=== PATIENT | female | born 1980 | race African-American/Black ===

== ENCOUNTER 2023-08-27 10:43 | Emergency (ER) | payer SELFPAY ==
[~2023-08-27] VITALS: Ht 162.6 cm; Wt 104.8 kg
[2023-08-27 11:35] VITALS: BP 132/86; PULSE 113; RESP 16; TEMP 98.1; O2SAT 95
[2023-08-27 12:07] VITALS: O2SAT 99
== END 2023-08-27 12:17 | disposition home or self-care (01) ==
LOC: MED 10:43
DX: F10.129 Alcohol abuse with intoxication, unspecified (principal); Y90.9 Presence of alcohol in blood, level not specified
CPT/HCPCS: 99281

== ENCOUNTER 2023-11-29 17:44 | Emergency (ER) | payer SELFPAY ==
[~2023-11-29] VITALS: Ht 165.1 cm; Wt 81.6 kg
[2023-11-29 17:44] VITALS: BP 152/109; PULSE 106; RESP 18; TEMP 98.6; O2SAT 98
[2023-11-29] MEDS: TETRACAINE HCL/PF 0.5% OPTH 4 ML BTL OP ONE ×2 (19:26→21:50)
[2023-11-29 19:43] LABS: BASOPHILS # (AUTO) 0.1 K/uL (0.00-0.22); BASOPHILS % (AUTO) 0.7 % (0.0-2.0); EOSINOPHILS % (AUTO) 0.1 % (0.0-4.0); HEMATOCRIT 39.7 % (36-48); HEMOGLOBIN 13.8 g/dL (12.0-16.0); LYMPHOCYTES # (AUTO) 1.1 K/uL (2.5-16.5); LYMPHOCYTES % (AUTO) 13.2 % (20.5-51.1); MEAN CORPUSCULAR HEMOGLOBIN 32 pg (27-31); MEAN CORPUSCULAR HGB CONC 35 g/dL (33-37); MEAN CORPUSCULAR VOLUME 91.9 fL (80-94); MONOCYTES # (AUTO) 0.2 K/uL (0.8-1.0); MONOCYTES % (AUTO) 2.8 % (1.7-9.3); NEUTROPHILS # (AUTO) 6.7 K/uL (1.8-7.7); NEUTROPHILS % (AUTO) 83.2 % (42.2-75.2); PLATELET COUNT (AUTO) 185 K/uL (140-450); RED BLOOD CELL COUNT(AUTO) 4.32 MIL/uL (4.20-5.40); RED CELL DISTRIBUTION WIDTH 13.9 % (11.6-13.7)
[2023-11-29 19:57] LABS: ANION GAP 22.7 (8-16); CALCIUM 9.4 mg/dL (8.5-10.1); CARBON DIOXIDE 20.2 mmol/L (21-32); CREATININE 0.8 mg/dL (0.6-1.3); POTASSIUM 3.9 mmol/L (3.5-5.1)
[2023-11-29 20:00] LABS: INR 0.96 (0.8-1.2); PARTIAL THROMBOPLASTIN TIME 26.5 secs (22-35.6); PROTHROMBIN TIME 10.1 secs (10.8-13.4)
[2023-11-29 20:03] LABS: ALBUMIN 3.5 g/dL (3.4-5.0); BILIRUBIN,DIRECT 0.2 mg/dL (0.0-0.3); TOTAL BILIRUBIN 1.3 mg/dL (0.0-1.0); TOTAL PROTEIN, SERUM 8.6 g/dL (6.4-8.2)
[2023-11-29 20:18] LABS: LACTIC ACID 1.3 mmol/L (0.4-2.0)
[2023-11-29] MEDS: NACL 0.9% 1,500 ML IV ONE (20:47)
[2023-11-29] MEDS ORDERED: cefTRIAXone 2,000 MG VIAL ONE (21:01)
[2023-11-29] MEDS ORDERED: LORazepam 2 MG/ML VIAL ONE (21:02)
[2023-11-29] MEDS: LORazepam 2 MG/ML VIAL IVP ONE (21:10)
[2023-11-29] MEDS: cefTRIAXone 2,000 MG in DEXTROSE 5% 100 ML IV ONE (21:12)
[2023-11-29] MEDS: FLUORESCEIN OPTH STRIP 1 MG OP ONE (21:50)
[2023-11-29] MEDS ORDERED: VANCOMYCIN 1,000 MG VIAL ONE (22:17)
[2023-11-29] MEDS: VANCOMYCIN 1,000 MG in DEXTROSE 5% 250 ML IV ONE (22:20)
[2023-11-29] MEDS: HYDROcodone/APAP 5/325 MG 1 TAB TAB PO ONE (22:55)
[2023-11-30 00:26] VITALS: BP 157/96; PULSE 96; RESP 16; TEMP 98.5; O2SAT 99
== END 2023-11-30 00:29 | disposition left against medical advice (07) ==
LOC: MED 17:44
DX: H16.003 Unspecified corneal ulcer, bilateral (principal); H11.423 Conjunctival edema, bilateral
CPT/HCPCS: 36415; 70481; 80048; 80076; 81025; 83605; 85025; 85610; 85730; 87040; 96365; 96367; 96375; 99285; J0696; J2060; J3370; J7030; Q9967

== ENCOUNTER 2024-03-10 17:30 | Emergency (ER) | payer MEDICAID, OTHER ==
[~2024-03-10] VITALS: Ht 157.5 cm; Wt 95.3 kg
[2024-03-10 18:32] VITALS: BP 131/92; PULSE 114; RESP 18; TEMP 98.3; O2SAT 94
[2024-03-10 18:46] LABS: BASOPHILS % (AUTO) 0.2 % (0.0-2.0); EOSINOPHILS % (AUTO) 0.5 % (0.0-4.0); HEMATOCRIT 39.7 % (36-48); HEMOGLOBIN 13.3 g/dL (12.0-16.0); LYMPHOCYTES # (AUTO) 1.2 K/uL (2.5-16.5); LYMPHOCYTES % (AUTO) 12.9 % (20.5-51.1); MEAN CORPUSCULAR HEMOGLOBIN 31 pg (27-31); MEAN CORPUSCULAR HGB CONC 34 g/dL (33-37); MEAN CORPUSCULAR VOLUME 92.4 fL (80-94); MONOCYTES # (AUTO) 0.2 K/uL (0.8-1.0); MONOCYTES % (AUTO) 2.6 % (1.7-9.3); NEUTROPHILS # (AUTO) 7.5 K/uL (1.8-7.7); NEUTROPHILS % (AUTO) 83.8 % (42.2-75.2); PLATELET COUNT (AUTO) 211 K/uL (140-450); RED BLOOD CELL COUNT(AUTO) 4.29 MIL/uL (4.20-5.40); RED CELL DISTRIBUTION WIDTH 12.8 % (11.6-13.7)
[2024-03-10 18:54] LABS: ANION GAP 19.6 (8-16); CALCIUM 8.4 mg/dL (8.5-10.1); CARBON DIOXIDE 24.8 mmol/L (21-32); CREATININE 0.8 mg/dL (0.6-1.3); POTASSIUM 3.4 mmol/L (3.5-5.1)
[2024-03-10 19:37] VITALS: BP 131/92; PULSE 114; RESP 18; TEMP 98.3; O2SAT 94
[2024-03-10 20:02] LABS: ALANINE AMINOTRANSFERASE 20 U/L (12-78); ALKALINE PHOSPHATASE 96 U/L (50-136); ASPARTATE AMINOTRANSFERASE 30 U/L (15-37); BILIRUBIN,DIRECT 0.1 mg/dL (0.0-0.3); LIPASE 60 U/L (16-77); SALICYLATE < 2.8 mg/dL (2.8-20.0); TOTAL BILIRUBIN 0.4 mg/dL (0.0-1.0); TOTAL PROTEIN, SERUM 8.4 g/dL (6.4-8.2)
[2024-03-10 20:03] LABS: ACETAMINOPHEN < 0.5 ug/ml (10-30)
[2024-03-10] MEDS: ACETAMINOPHEN 325 MG TAB PO ONE (22:13)
== END 2024-03-10 22:22 | disposition home or self-care (01) ==
LOC: MED 17:30
DX: F10.129 Alcohol abuse with intoxication, unspecified (principal); Y90.0 Blood alcohol level of less than 20 mg/100 ml
CPT/HCPCS: 36415; 80048; 80076; 83690; 84703; 85025; 99285; G0480; G0482; 99283